=== PATIENT | male | born 1965 | race Caucasian/White ===

== ENCOUNTER 2016-12-09 10:11 | Outpatient (CLI) | payer BC | END 2016-12-09 10:12 | disposition home or self-care (01) | DX: R94.6 Abnormal results of thyroid function studies (principal) ==

== ENCOUNTER 2016-12-15 10:48 | Day surgery (SDC) | payer BC ==
[2016-12-15] MEDS ORDERED: LACTATED RINGERS 1,000 ML IV ONE (11:37)
[2016-12-15] MEDS ORDERED: fentaNYL 250 MCG/5 ML VIAL IVP ONE (14:02)
[2016-12-15] MEDS ORDERED: MIDAZOLAM 2 MG/2 ML VIAL IVP ONE (14:02)
== END 2016-12-15 10:49 | disposition home or self-care (01) ==
PROC: 0DBN8ZX Excision of Sigmoid Colon, Via Natural or Artificial Opening Endoscopic, Diagnostic (ICD-10-PCS; principal; 2016-12-15 11:45)
DX: Z12.11 Encounter for screening for malignant neoplasm of colon (principal); K63.5 Polyp of colon
CPT/HCPCS: 45380; J7120